=== PATIENT | female | born 1995 | race African-American/Black ===

== ENCOUNTER 2018-05-13 00:04 | Emergency (ER) | payer OTHER ==
[~2018-05-13] VITALS: Ht 170.2 cm; Wt 93.4 kg
[~2018-05-13 00:04] MED LIST: NOHOMEMEDICATIONS
[2018-05-13 03:36] VITALS: BP 101/49
== END 2018-05-13 03:37 | disposition home or self-care (01) ==
LOC: ER 00:04
DX: O26.893 Other specified pregnancy related conditions, third trimester (principal); R10.10 Upper abdominal pain, unspecified; Z3A.00 Weeks of gestation of pregnancy not specified